=== PATIENT | male | born 1995 | race Caucasian/White ===

== ENCOUNTER 2020-07-10 23:35 | Emergency (ER) | payer SELFPAY ==
[~2020-07-10] VITALS: Ht 170.2 cm; Wt 70.0 kg
[2020-07-11] MEDS ORDERED: ACETAMINOPHEN 325MG TABLET PO ONE (00:15)
[2020-07-11] MEDS ORDERED: BACITRACIN ZINC OINT UDPKT TOP ONE (00:30)
[2020-07-11] MEDS ORDERED: SODIUM CHLORIDE 0.9% 1,000 ML IV ONE (00:30)
[2020-07-11] MEDS ORDERED: TETANUS, DIPHTHERIA, PERTUSSIS VAC/PF 0.5ML (>7YR OLD) IM ONE (00:30)
[2020-07-11 02:37] LABS: BASOPHILS % 0.8 % (0.0-2.0); HEMATOCRIT. 45.7 % (42.0-52.0); HEMOGLOBIN. 15.4 g/dL (14.0-18.0); LYMPHOCYTES % 28.9 % (20.0-50.0); MEAN CORPUSCULAR HEMOGLOBIN 31.1 pg (28.0-32.0); MEAN CORPUSCULAR VOLUME 92.4 fL (80.0-94.0); MEAN PLATELET VOLUME 8.7 fl (7.4-10.4); NEUTROPHILS % 57.3 % (40.0-76.0); PLATELET 251 x1000/uL (130-400); RED BLOOD CELL COUNT 4.95 mill/uL (4.7-6.1); RED CELL DISTRIBUTION WIDTH 13.1 % (11.6-14.6)
[2020-07-11 02:45] LABS: CHLORIDE 108 mEq/L (98-107)
[2020-07-11 02:49] LABS: ETHANOL BLOOD 224 mg/dL
[2020-07-11] MEDS ORDERED: POTASSIUM CHLORIDE 20MEQ TABLET SR PO ONE (03:00)
[2020-07-11 06:50] VITALS: BP 109/74
== END 2020-07-11 06:45 | disposition home or self-care (01) ==
LOC: ER 23:35
DX: S02.2XXA Fracture of nasal bones, initial encounter for closed fracture (principal); Y08.89XA Assault by other specified means, initial encounter; Y93.89 Activity, other specified; Y92.89 Other specified places as the place of occurrence of the external cause; Y99.8 Other external cause status; E87.6 Hypokalemia
CPT/HCPCS: 36415; 70450; 70486; 71045; 72125; 73030; 73060; 73140; 73590; 80053; 80320; 85025; 90471; 90715; 93005; 96360; 99285; J7030; G0480